=== PATIENT | male | born 1970 | race American Indian/Alaskan Native ===

== ENCOUNTER 2022-01-06 07:50 | Day surgery (SDC) | payer BC ==
[~2022-01-06 07:50] MED LIST: ACETAMINOPHEN 500 MG TAB PO SCH; LACTATED RINGERS 1,000 ML IV SCH; MIDAZOLAM 2 MG/2 ML INJ IV NR
--- NOTE | 2022-01-06 09:00 | Anesthesia Consultation ---
Anesthesia Consult and Med Hx Date of service: 01/06/22 - Airway Anesthetic Teeth Evaluation: Good ROM Head & Neck: Adequate Mental/Hyoid Distance: Adequate Mallampati Class: Class II Intubation Access Assessment: Probably Good - Pre-Operative Health Status ASA Pre-Surgery Classification: ASA3 Proposed Anesthetic Plan: General - Pulmonary Hx Smoking: Yes (former smoker quit 30yrs) Hx Respiratory Symptoms: No Hx Sleep Apnea: No (BETTY PRE SCREEN HIGH RISK) - Cardiovascular System Hx Hypertension: Yes (took amlodipine, coreg this morning) Hx Heart Attack/AMI: No Hx Percutaneous Transluminal Coronary Angioplasty (PTCA): No Hx Cardia Arrhythmia: No - Central Nervous System 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
--- NOTE | 2022-01-06 09:01 | Anesthesia Day of Surgery ---
Anesthesia Day of Surgery - Day of Surgery Patient Examined: Yes Patient H&P Reviewed: Yes Patient is NPO: Yes Beta Blockers: Yes
[2022-01-06] MEDS ORDERED: HYDROmorphone 1 MG/1 ML INJ IV PRN (09:30)
[2022-01-06] MEDS ORDERED: ONDANSETRON 4 MG/2 ML INJ IV PRN (09:30)
[2022-01-06] MEDS ORDERED: CLINDAMYCIN 600 MG/50 mL 600 MG/50 ML BAG IV SCH (09:30)
[2022-01-06] MEDS ORDERED: oxyCODONE /ACETAMINOPHEN 5-325MG TAB PO PRN (09:30)
[2022-01-06] MEDS ORDERED: propofoL 200 MG/20 ML VIAL IV ONE (09:47)
[2022-01-06] MEDS ORDERED: fentaNYL 100 MCG/2 ML INJ ONE (09:49)
[2022-01-06] MEDS ORDERED: ONDANSETRON 4 MG/2 ML INJ ONE (09:56)
[2022-01-06] MEDS ORDERED: KETOROLAC 30 MG/1 ML INJ ONE (09:56)
[2022-01-06] MEDS ORDERED: dexAMETHasone 20 MG/5 ML VIAL ONE (09:56)
--- NOTE | 2022-01-06 12:20 | Operative Report ---
DATE OF SURGERY: 01/06/2022 PREOPERATIVE DIAGNOSIS: Left hydrocele POSTOPERATIVE DIAGNOSIS: Left hydrocele. OPERATIVE PROCEDURE: Left hydrocelectomy. ATTENDING: Rigoberto Michael MD MILITARY PILOT: None. ANESTHESIA: General. ESTIMATED BLOOD LOSS: 20 mL. DRAINS: Cobb drain. SPECIMENS: Hydrocele sac. COMPLICATIONS: None. INDICATIONS FOR PROCEDURE: The patient is a 51-year-old man with a left hydrocele that was growing and large. It was causing pain. The patient wished to have the hydrocele removed. DESCRIPTION OF PROCEDURE IN DETAIL: After induction of suitable anesthesia and proper positioning and preparation in the supine position, a transverse incision was made in the lower part of the patient's left hemiscrotum. Dissection was carried down through the dartos and tunical layers of the left hemiscrotum and the hydrocele. The hydrocele was delivered through the skin incision. Obvious large veins were coagulated and hemostasis was maintained throughout. The hydrocele was then entered and drained. It was approximately 400 mL of clear fluid. The hydrocele was then opened longitudinally and the excess tunical tissue was coagulated and removed. This was sent for pathologic review. The edges of the tunica were then oversewn to prevent reaccumulation of the hydrocele. Once complete, the left testicle was placed back into its anatomic position in the left hemiscrotum. It was not torsed in any way. Throughout the procedure, the vas and blood vessels were identified and left uninjured. A Cobb drain was placed posteriorly in the left hemiscrotum through a through a separate dependent incision. It was secured in the usual fashion. The scrotal incision was then closed in layers. The dressings were applied. The patient was then awakened from anesthesia and transferred to the recovery room in stable condition. He tolerated the procedure well. He will return in approximately 5 days for drain removal. TID: [id number] RECEIPT: [id number] ANDREA/[place]
[2022-01-06 12:33] VITALS: BP 127/85
--- NOTE | 2022-01-06 14:25 | Post Anesthesia Evaluation ---
- Post Anesthesia Evaluation Patient Participated: Yes Airway Patent: Yes Stable Respiratory Function: Yes Nausea/Vomiting: No Temp > 96.8F: Yes Pain Manageable: Yes Adequeate Hydration: Yes Anesthesia Complications: No
== END 2022-01-06 12:10 | disposition home or self-care (01) ==
LOC: OR 07:50
PROVIDERS: ATTEND Urology
DX: N43.2 Other hydrocele (principal); I10 Essential (primary) hypertension; E11.9 Type 2 diabetes mellitus without complications; Z87.891 Personal history of nicotine dependence; Z88.0 Allergy status to penicillin; Z79.899 Other long term (current) drug therapy; Z79.84 Long term (current) use of oral hypoglycemic drugs; Z98.890 Other specified postprocedural states; Z86.73 Personal history of transient ischemic attack (TIA), and cerebral infarction without residual deficits
CPT/HCPCS: 55040; 82962; 88302; J1100; J1885; J2405; J2704; J3010; J7120; J7502; J2250